=== PATIENT | female | born 1980 | race Native Hawaiian/Other Pacific Islander ===

== ENCOUNTER → 2022-05-20 | Outpatient (CLI) | payer OTHER ==
[2022-05-20 11:54] LABS: PLATELET COUNT 181 K/uL (152-353)
== END ==
LOC: LABW 10:10
PROVIDERS: ATTEND Specialist
DX: R53.83 Other fatigue (principal); N95.2 Postmenopausal atrophic vaginitis; R68.82 Decreased libido
CPT/HCPCS: 36415; 82670; 84402; 84403; 84439; 84443; 85027

== ENCOUNTER 2022-06-02 12:42 | Outpatient (CLI) | payer OTHER | END 2022-06-02 20:55 | disposition home or self-care (01) | LOC: MAMMO 12:42 | PROVIDERS: ATTEND Specialist | DX: Z12.31 Encounter for screening mammogram for malignant neoplasm of breast (principal) ==

== ENCOUNTER 2022-07-29 18:06 | Emergency (ER) | payer OTHER ==
[~2022-07-29] VITALS: Ht 177.8 cm; Wt 88.0 kg
[2022-07-29 18:10] VITALS: TEMP 98.2
[2022-07-29 20:15] VITALS: BP 115/83
== END 2022-07-29 20:15 | disposition home or self-care (01) ==
LOC: ED 18:06
DX: B34.9 Viral infection, unspecified (principal); Z20.822 Contact with and (suspected) exposure to COVID-19
CPT/HCPCS: 87502; 87635; 87651; 96372; 99283; J1885; J2405; U0003

== ENCOUNTER 2022-08-17 03:26 | Emergency (ER) | payer OTHER ==
[~2022-08-17] VITALS: Ht 177.8 cm; Wt 88.0 kg
[2022-08-17 04:05] LABS: PLATELET COUNT 159 K/uL (152-353)
[2022-08-17 04:12] LABS: POTASSIUM 3.8 mmol/L (3.6-5.2)
== END 2022-08-17 05:00 | disposition home or self-care (01) ==
LOC: ED 03:26
PROVIDERS: Emergency Medicine
DX: S39.012A Strain of muscle, fascia and tendon of lower back, initial encounter (principal); X58.XXXA Exposure to other specified factors, initial encounter; Y92.098 Other place in other non-institutional residence as the place of occurrence of the external cause
CPT/HCPCS: 36415; 80053; 81000; 85027; 96374; 96375; 96376; 99284; J1885; J2270; J2405

== ENCOUNTER 2022-11-14 14:42 | Outpatient (CLI) | payer OTHER | END 2022-11-14 20:20 | disposition home or self-care (01) | LOC: MRI 14:42 | PROVIDERS: ATTEND Internal Medicine | DX: M51.36 Other intervertebral disc degeneration, lumbar region (principal) ==

== ENCOUNTER 2022-12-12 09:34 | Outpatient (CLI) | payer OTHER | END 2022-12-12 19:14 | disposition home or self-care (01) | LOC: CT 09:34 | PROVIDERS: ATTEND Internal Medicine | DX: N28.89 Other specified disorders of kidney and ureter (principal) | CPT/HCPCS: Q9963 ==